=== PATIENT | male | born 1985 | race Caucasian/White ===

== ENCOUNTER 2024-04-09 15:37 | Outpatient (CLI) | payer OTHER, SELFPAY ==
--- NOTE | 2024-04-09 15:45 | US_ITS ---
WS: [id number] SCROTAL ULTRASOUND EXAMINATION CLINICAL INFORMATION: N50.812 - Left testicular pain COMPARISON: None. FINDINGS: TESTES Normal in size and echotexture, without focal lesion. Color Doppler: Normal color Doppler flow pattern. Right testes size: 4.5 cm x 2.8 cm x 2.0 cm. Left testes size: 4.2 cm x 2.7 cm x cm. EPIDIDYMIDES Normal in size and echotexture, without focal lesion. Color Doppler: Normal color Doppler flow pattern. Right epididymis size: 1.2 cm x 1.5 cm x 0.7 cm. Left epididymis size: 1.5 cm x 1.0 cm x 1.1 cm. HYDROCELE None. VARICOCELE LEFT varicocele measuring 2.3 cm in maximum dimension. OTHER FINDINGS None. US/US scrotum [id number] IMPRESSION: 1. LEFT varicocele measuring 2.3 cm in maximum dimension. 2. Otherwise normal exam
== END 2024-04-09 15:38 | disposition home or self-care (01) ==
LOC: RAD 15:38
PROVIDERS: Visit Provider Nurse Practitioner Family
DX: I86.1 Scrotal varices (principal)
CPT/HCPCS: 76870

== ENCOUNTER → 2025-02-18 13:39 | Outpatient (BNVA) | payer OTHER, SELFPAY | PROVIDERS: Visit Provider Nurse Practitioner | DX: S86.912A Strain of unspecified muscle(s) and tendon(s) at lower leg level, left leg, initial encounter (principal); Z76.89 Persons encountering health services in other specified circumstances; X58.XXXA Exposure to other specified factors, initial encounter | CPT/HCPCS: 73562 ==

== ENCOUNTER 2025-03-25 12:47 | Outpatient (CLI) | payer OTHER, SELFPAY ==
--- NOTE | 2025-03-25 13:00 | MR_ITS ---
WS: [id number] MRI LEFT KNEE HISTORY: Left knee pain COMPARISON: LEFT knee radiograph 02/18/2025 Anterior cruciate ligament: Intact. Posterior cruciate ligament: Intact. Medial collateral ligament: Intact. Posterior lateral corner structures: Intact. Medial menisci: Intact. Normal signal, size and shape. Lateral meniscus: Intact. Normal signal, size and shape. Extensor mechanism: Distal quadriceps tendon and patellar tendons are intact. Fluid and soft tissue: No joint effusion. No Ureña's cyst. Osseous and articular structures: Patellofemoral compartment: Normal. Medial compartment: Normal. Lateral compartment: Normal. MR/MR knee LT wo con* [id number] IMPRESSION: 1. No meniscal or ACL tear. 2. No marrow edema or fracture. 3. No significant osteochondral lesions or thinning of the cartilage.
== END 2025-03-25 12:48 | disposition home or self-care (01) ==
LOC: RAD 12:48
PROVIDERS: Visit Provider Orthopaedic Surgery
DX: S86.912A Strain of unspecified muscle(s) and tendon(s) at lower leg level, left leg, initial encounter (principal); X58.XXXA Exposure to other specified factors, initial encounter
CPT/HCPCS: 73721

== ENCOUNTER 2025-05-10 08:47 | Outpatient (RCR) | payer OTHER, SELFPAY | END 2025-05-18 23:59 | disposition home or self-care (01) | LOC: MPT 08:47 | PROVIDERS: Visit Provider Orthopaedic Surgery | DX: S86.912D Strain of unspecified muscle(s) and tendon(s) at lower leg level, left leg, subsequent encounter (principal); X58.XXXD Exposure to other specified factors, subsequent encounter | CPT/HCPCS: 97161 ==